=== PATIENT | female | born 1955 | race Caucasian/White ===

== ENCOUNTER 2022-08-06 21:21 | Inpatient (IN) | payer OTHER ==
[2022-08-06] MEDS ORDERED: ONDANSETRON 4 MG/2 ML VIAL ONE (22:25)
[2022-08-06] MEDS ORDERED: KETOROLAC TROMETHAMINE 30 MG/1 ML VIAL ONE (22:25)
[2022-08-06] MEDS ORDERED: morphine SULFATE 4 MG/ML VIAL ONE (22:25)
[2022-08-06] MEDS ORDERED: ONDANSETRON 4 MG/2 ML VIAL IVPUSH ONE (22:33)
[2022-08-06] MEDS ORDERED: morphine CARPU-JECT 2 MG/1 ML DISP.SYRIN IVPUSH ONE (22:33)
[2022-08-06] MEDS ORDERED: SODIUM CHLORIDE 1,000 ML IV ONE (22:33)
[2022-08-06] MEDS ORDERED: KETOROLAC TROMETHAMINE 30 MG/1 ML VIAL IVPUSH ONE (22:33)
[2022-08-06 23:04] LABS: HEMATOCRIT 48.2 % (32.4-45.2); HEMOGLOBIN 16.6 G/dL (10.7-15.3); MCHC 34.3 g/dl (32.0-36.0); MEAN CELL VOLUME 93.3 fl (80-96); MEAN PLT VOLUME 7.9 fl (7.5-11.1); PLATELET COUNT 304.2 10^3/uL (134-434); RBC 5.17 10^6/uL (3.60-5.2); RDW 13.6 % (11.6-15.6); WHITE BLOOD COUNT 17.1 10^3/uL (4.0-10.8)
[2022-08-06 23:18] LABS: ALBUMIN 4.5 g/dl (3.4-5.0); BILIRUBIN,TOTAL 0.6 mg/dl (0.2-1); CALCIUM 9.4 mg/dl (8.5-10); CREATININE 0.9 mg/dl (0.55-1.3); POTASSIUM 3.3 mmol/L (3.5-5.1)
[2022-08-07] MEDS ORDERED: morphine CARPU-JECT 4 MG/1 ML DISP.SYRIN IVPUSH ONE (00:13)
[2022-08-07] MEDS ORDERED: FAMOTIDINE 20 MG TABLET PO ONE (00:21)
[2022-08-07] MEDS ORDERED: morphine SULFATE 4 MG/ML VIAL ONE (00:30)
[2022-08-07 01:17] LABS: PH,URINE 6.5 (5.0-8.0); URINE APPEARANCE CLEAR; URINE BILIRUBIN NEGATIVE (NEGATIVE); URINE COLOR YELLOW; URINE GLUCOSE (UA) NEGATIVE (NEGATIVE); URINE KETONE NEGATIVE (NEGATIVE); URINE LEUK ESTERASE NEGATIVE (NEGATIVE); URINE NITRITE NEGATIVE (NEGATIVE); URINE PROTEIN NEGATIVE (NEGATIVE); URINE UROBILINOGEN 0.2 mg/dL (0.2-1.0)
[2022-08-07] MEDS ORDERED: PIPERACILLIN/TAZOBACTAM 4.5 GM VIAL IVPB ONE (01:20)
[2022-08-07] MEDS ORDERED: PIPERACILLIN/TAZOB 4.5 GM 4.5 GM in DEXTROSE 5%-WATER 100 ML IVPB ONE (01:25)
[2022-08-07 01:32] LABS: LACTIC ACID 3.4 mmol/L (0.4-2.0)
[2022-08-07] MEDS ORDERED: ONDANSETRON 4 MG/2 ML VIAL IVPUSH PRN (02:48)
[2022-08-07] MEDS ORDERED: SODIUM CHLORIDE 1,000 ML IV STA (02:56)
[2022-08-07] MEDS ORDERED: SODIUM CHLORIDE 1,000 ML IV SCH ×3 (03:00→07:25)
[2022-08-07 03:41] VITALS: BMI 44.0
[2022-08-07] MEDS ORDERED: ACETAMINOPHEN 1000 MG/100 ML BAG IVPB PRN (07:25)
[2022-08-07] MEDS ORDERED: KETOROLAC TROMETHAMINE 30 MG/1 ML VIAL IVPUSH PRN ×2 (07:25→07:34)
[2022-08-07] MEDS ORDERED: morphine CARPU-JECT 2 MG/1 ML DISP.SYRIN IVPUSH PRN (07:26)
[2022-08-07] MEDS: PIPERACILLIN/TAZOB 3.375 GM 3.375 GM in DEXTROSE 5%-WATER - 50 ML IVPB SCH ×4 (10:04→22:44)
[2022-08-07] MEDS: CHLORTHALIDONE 25 MG TABLET PO SCH (10:04)
[2022-08-07] MEDS: LISINOPRIL 20 MG TABLET PO SCH (10:04)
[2022-08-07] MEDS: ACETAMINOPHEN 1000 MG/100 ML BAG IVPB PRN (10:05)
[2022-08-07 10:25] LABS: LACTIC ACID 2.1 mmol/L (0.4-2.0)
[2022-08-07] MEDS: morphine SULFATE 4 MG/ML VIAL IVPUSH PRN ×2 (11:43→18:38)
[2022-08-07] MEDS: SODIUM CHLORIDE 1,000 ML IV SCH ×2 (11:45→18:31)
[2022-08-07 13:34] LABS: BILIRUBIN,TOTAL 0.4 mg/dl (0.2-1); CALCIUM 8.4 mg/dl (8.5-10); POTASSIUM 3.5 mmol/L (3.5-5.1); TOT PROT 7.1 g/dl (6.4-8.2)
[2022-08-07 15:45] LABS: INR 1.15 (0.83-1.09); PROTHROMBIN TIME (PATIENT) 13.3 SEC (9.7-13.0)
[2022-08-07 15:52] LABS: HEMOGLOBIN 14.7 GM/dL (10.7-15.3); MCH 30.3 pg (25.7-33.7); MCHC 33.3 g/dl (32.0-36.0); MEAN CELL VOLUME 90.9 fl (80-96); MEAN PLT VOLUME 7.5 fl (7.5-11.1); PLATELET COUNT 372 10^3/uL (134-434); RBC 4.85 M/mm3 (3.60-5.2); RDW 13.9 % (11.6-15.6); WHITE BLOOD COUNT 16.9 K/mm3 (4.0-10.0)
[2022-08-07 17:18] LABS: ANISOCYTOSIS 1+; MACROCYTOSIS 0
[2022-08-08] MEDS: LEVOTHYROXINE NA 100 MCG TABLET (FP) PO SCH ×2 (02:00→06:20)
[2022-08-08] MEDS: ACETAMINOPHEN 1000 MG/100 ML BAG IVPB PRN (02:42)
[2022-08-08] MEDS: SODIUM CHLORIDE 1,000 ML IV SCH (04:44)
[2022-08-08] MEDS: PIPERACILLIN/TAZOB 3.375 GM 3.375 GM in DEXTROSE 5%-WATER - 50 ML IVPB SCH ×4 (05:01→22:40)
[2022-08-08 08:16] LABS: BASO % 0.1 % (0-2.0); HEMOGLOBIN 13.1 GM/dL (10.7-15.3); LYMPH % 9.6 % (8-40); MCH 31.6 pg (25.7-33.7); MCHC 35.3 g/dl (32.0-36.0); MEAN CELL VOLUME 89.5 fl (80-96); MEAN PLT VOLUME 7.9 fl (7.5-11.1); MONO % 7.2 % (3.8-10.2); NEUT % 83.1 % (42.8-82.8); PLATELET COUNT 284 10^3/uL (134-434); RBC 4.14 M/mm3 (3.60-5.2); WHITE BLOOD COUNT 23.4 K/mm3 (4.0-10.0)
[2022-08-08 08:32] LABS: POTASSIUM 3.5 mmol/L (3.5-5.1)
[2022-08-08 08:34] LABS: INR 1.28 (0.83-1.09); PROTHROMBIN TIME (PATIENT) 14.8 SEC (9.7-13.0)
[2022-08-08 08:37] LABS: CALCIUM 8.2 mg/dL (8.5-10.1)
[2022-08-08 08:38] LABS: BLOOD UREA NITROGEN 32.2 mg/dL (7-18)
[2022-08-08 08:40] LABS: CREATININE 1.4 mg/dL (0.55-1.3)
[2022-08-08 08:42] LABS: TOT PROT 6.1 g/dl (6.4-8.2)
[2022-08-08 09:08] LABS: ANISOCYTOSIS 0; HELMET CELLS 0; HOWELL-JOLLY BODIES 0; MACROCYTOSIS 0; OVALOCYTE 0; ROULEAU 0; SICKELED CELLS 0; TARGET CELLS 0; TEAR DROP CELLS 0; TOXIC GRANULATION 0
[2022-08-08] MEDS: LISINOPRIL 20 MG TABLET PO SCH (09:29)
[2022-08-08] MEDS: CHLORTHALIDONE 25 MG TABLET PO SCH (09:29)
[2022-08-08 09:35] LABS: PHOSPHOROUS 3.7 mg/dL (2.5-4.9)
[2022-08-08] MEDS ORDERED: SODIUM CHLORIDE 1,000 ML IV SCH (09:56)
[2022-08-08] MEDS: morphine SULFATE 4 MG/ML VIAL IVPUSH PRN ×2 (11:13→22:43)
[2022-08-08] MEDS ORDERED: POTASSIUM CHLORIDE TABS 20 MEQ TABLET.ER (FP) PO ONE (14:57)
[2022-08-08] MEDS: LACTATED RINGERS SOLUTION 1,000 ML/1,000 ML INFUS.BAG IV SCH (17:01)
[2022-08-08 17:34] LABS: EPI CELLS 18 /uL (0-25.1); HYALINE CASTS 0 /uL (0-3.1); URINE APPEARANCE CLOUDY; URINE BACTERIA 3 /uL (0-1359); URINE BILIRUBIN NEGATIVE (NEGATIVE); URINE COLOR YELLOW; URINE GLUCOSE (UA) NEGATIVE (NEGATIVE); URINE KETONE NEGATIVE (NEGATIVE); URINE LEUK ESTERASE NEGATIVE (NEGATIVE); URINE NITRITE NEGATIVE (NEGATIVE); URINE PROTEIN 1+ (NEGATIVE); URINE UROBILINOGEN 0.2 mg/dL (0.2-1.0); URINE WBC 31 /uL (0-25.8)
[2022-08-08 18:17] LABS: URINE RBC 56 /uL (0-23.9)
[2022-08-09] MEDS: LACTATED RINGERS SOLUTION 1,000 ML/1,000 ML INFUS.BAG IV SCH ×4 (01:22→20:11)
[2022-08-09] MEDS: morphine SULFATE 4 MG/ML VIAL IVPUSH PRN ×3 (03:21→16:45)
[2022-08-09] MEDS: ACETAMINOPHEN 1000 MG/100 ML BAG IVPB PRN ×2 (05:53→20:10)
[2022-08-09] MEDS: PIPERACILLIN/TAZOB 3.375 GM 3.375 GM in DEXTROSE 5%-WATER - 50 ML IVPB SCH ×2 (05:53→10:00)
[2022-08-09] MEDS: LEVOTHYROXINE NA 100 MCG TABLET (FP) PO SCH (06:05)
[2022-08-09 07:41] LABS: HEMATOCRIT 34.1 % (32.4-45.2); HEMOGLOBIN 11.8 GM/dL (10.7-15.3); MCH 30.9 pg (25.7-33.7); MCHC 34.6 g/dl (32.0-36.0); MEAN CELL VOLUME 89.4 fl (80-96); MEAN PLT VOLUME 7.7 fl (7.5-11.1); PLATELET COUNT 267 10^3/uL (134-434); RBC 3.82 M/mm3 (3.60-5.2); RDW 13.9 % (11.6-15.6); WHITE BLOOD COUNT 20.9 K/mm3 (4.0-10.0)
[2022-08-09 07:55] LABS: POTASSIUM 3.1 mmol/L (3.5-5.1)
[2022-08-09 08:04] LABS: CALCIUM 8.6 mg/dL (8.5-10.1)
[2022-08-09 08:06] LABS: ALBUMIN 2.7 g/dl (3.4-5.0); BLOOD UREA NITROGEN 18.9 mg/dL (7-18); MAGNESIUM 2.1 mg/dL (1.8-2.4)
[2022-08-09 08:08] LABS: CREATININE 0.9 mg/dL (0.55-1.3)
[2022-08-09 08:11] LABS: BILIRUBIN,TOTAL 0.9 mg/dL (0.2-1)
[2022-08-09 09:55] LABS: ANISOCYTOSIS 1+; MACROCYTOSIS 0
[2022-08-09] MEDS: POTASSIUM CHLORIDE TABS 20 MEQ TABLET.ER (FP) PO SCH ×2 (10:00→21:59)
[2022-08-10] MEDS: morphine SULFATE 4 MG/ML VIAL IVPUSH PRN ×3 (00:36→14:02)
[2022-08-10] MEDS: ACETAMINOPHEN 1000 MG/100 ML BAG IVPB PRN ×3 (02:38→17:34)
[2022-08-10] MEDS: LEVOTHYROXINE NA 100 MCG TABLET (FP) PO SCH (06:31)
[2022-08-10 08:22] LABS: BASO % 0.3 % (0-2.0); EOS % 0.8 % (0-4.5); HEMATOCRIT 33.4 % (32.4-45.2); LYMPH % 14.4 % (8-40); MCHC 35.8 g/dl (32.0-36.0); MEAN CELL VOLUME 89.2 fl (80-96); MEAN PLT VOLUME 7.9 fl (7.5-11.1); MONO % 5.2 % (3.8-10.2); NEUT % 79.3 % (42.8-82.8); PLATELET COUNT 298 10^3/uL (134-434); RBC 3.74 M/mm3 (3.60-5.2); RDW 13.7 % (11.6-15.6); WHITE BLOOD COUNT 17.4 K/mm3 (4.0-10.0)
[2022-08-10] MEDS: LISINOPRIL 20 MG TABLET PO SCH (09:13)
[2022-08-10] MEDS: POTASSIUM CHLORIDE TABS 20 MEQ TABLET.ER (FP) PO SCH (09:13)
[2022-08-10] MEDS: PANTOPRAZOLE SODIUM 40 MG VIAL IVPUSH SCH ×2 (11:03→21:21)
[2022-08-10] MEDS: LACTATED RINGERS SOLUTION 1,000 ML/1,000 ML INFUS.BAG IV SCH ×3 (12:00→21:20)
[2022-08-10] MEDS ORDERED: IBUPROFEN 800 MG/8 ML IJ IVPB PRN (16:22)
[2022-08-11] MEDS: ACETAMINOPHEN 1000 MG/100 ML BAG IVPB PRN (05:23)
[2022-08-11] MEDS: LEVOTHYROXINE NA 100 MCG TABLET (FP) PO SCH (06:06)
[2022-08-11 09:00] LABS: BASO % 0.2 % (0-2.0); EOS % 1.6 % (0-4.5); HEMATOCRIT 32.8 % (32.4-45.2); HEMOGLOBIN 11.6 GM/dL (10.7-15.3); MCH 31.4 pg (25.7-33.7); MCHC 35.2 g/dl (32.0-36.0); MEAN CELL VOLUME 89.1 fl (80-96); MEAN PLT VOLUME 7.9 fl (7.5-11.1); MONO % 5.3 % (3.8-10.2); NEUT % 77.9 % (42.8-82.8); PLATELET COUNT 340 10^3/uL (134-434); RBC 3.69 M/mm3 (3.60-5.2); RDW 13.6 % (11.6-15.6); WHITE BLOOD COUNT 14.6 K/mm3 (4.0-10.0)
[2022-08-11 09:18] LABS: MAGNESIUM 1.8 mg/dL (1.8-2.4)
[2022-08-11] MEDS: morphine SULFATE 4 MG/ML VIAL IVPUSH PRN ×3 (09:24→20:58)
[2022-08-11] MEDS: PANTOPRAZOLE SODIUM 40 MG VIAL IVPUSH SCH ×2 (09:25→21:00)
[2022-08-11] MEDS: LISINOPRIL 20 MG TABLET PO SCH (09:25)
[2022-08-11 10:38] LABS: POTASSIUM 3.4 mmol/L (3.5-5.1)
[2022-08-11 10:40] LABS: ALBUMIN 2.7 g/dl (3.4-5.0); CALCIUM 9.1 mg/dL (8.5-10.1)
[2022-08-11 10:43] LABS: CREATININE 0.6 mg/dL (0.55-1.3)
[2022-08-11 10:45] LABS: BILIRUBIN,TOTAL 0.9 mg/dL (0.2-1); TOT PROT 6.4 g/dl (6.4-8.2)
[2022-08-11] MEDS: LACTATED RINGERS SOLUTION 1,000 ML/1,000 ML INFUS.BAG IV SCH (15:07)
[2022-08-11] MEDS: DOCUSATE SODIUM 100 MG CAPSULE (FP) PO SCH (21:00)
[2022-08-12] MEDS: morphine SULFATE 4 MG/ML VIAL IVPUSH PRN ×2 (03:31→15:40)
[2022-08-12] MEDS: LEVOTHYROXINE NA 100 MCG TABLET (FP) PO SCH (06:05)
[2022-08-12 08:38] LABS: BASO % 0.3 % (0-2.0); EOS % 1.9 % (0-4.5); HEMATOCRIT 32.1 % (32.4-45.2); HEMOGLOBIN 11.2 GM/dL (10.7-15.3); LYMPH % 17.7 % (8-40); MCH 31.1 pg (25.7-33.7); MCHC 34.9 g/dl (32.0-36.0); MEAN CELL VOLUME 89.1 fl (80-96); MEAN PLT VOLUME 7.6 fl (7.5-11.1); MONO % 6.2 % (3.8-10.2); NEUT % 73.9 % (42.8-82.8); PLATELET COUNT 344 10^3/uL (134-434); RDW 13.3 % (11.6-15.6); WHITE BLOOD COUNT 14.7 K/mm3 (4.0-10.0)
[2022-08-12] MEDS: LACTATED RINGERS SOLUTION 1,000 ML/1,000 ML INFUS.BAG IV SCH ×2 (08:54→15:28)
[2022-08-12] MEDS: PANTOPRAZOLE SODIUM 40 MG VIAL IVPUSH SCH ×2 (09:01→22:58)
[2022-08-12] MEDS: LISINOPRIL 20 MG TABLET PO SCH (09:01)
[2022-08-12 09:06] LABS: ALBUMIN 2.5 g/dl (3.4-5.0); BLOOD UREA NITROGEN 7.2 mg/dL (7-18); CALCIUM 8.4 mg/dL (8.5-10.1)
[2022-08-12 09:08] LABS: MAGNESIUM 1.8 mg/dL (1.8-2.4)
[2022-08-12 09:09] LABS: CREATININE 0.6 mg/dL (0.55-1.3)
[2022-08-12 09:11] LABS: BILIRUBIN,TOTAL 0.7 mg/dL (0.2-1)
[2022-08-12] MEDS: POTASSIUM CHLORIDE TABS 20 MEQ TABLET.ER (FP) PO SCH ×2 (10:41→22:57)
[2022-08-12] MEDS: oxyCODONE HCL 5 MG TABLET PO PRN (21:10)
[2022-08-12] MEDS: DOCUSATE SODIUM 100 MG CAPSULE (FP) PO SCH (22:57)
[2022-08-13] MEDS: LEVOTHYROXINE NA 100 MCG TABLET (FP) PO SCH (07:02)
[2022-08-13] MEDS: oxyCODONE HCL 5 MG TABLET PO PRN (07:02)
[2022-08-13 08:03] LABS: POTASSIUM 3.5 mmol/L (3.5-5.1)
[2022-08-13 08:06] LABS: CALCIUM 8.6 mg/dL (8.5-10.1)
[2022-08-13 08:07] LABS: ALBUMIN 2.5 g/dl (3.4-5.0); BLOOD UREA NITROGEN 6.8 mg/dL (7-18)
[2022-08-13 08:08] LABS: BASO % 0.2 % (0-2.0); EOS % 3.5 % (0-4.5); HEMATOCRIT 31.7 % (32.4-45.2); MCHC 34.8 g/dl (32.0-36.0); MEAN CELL VOLUME 89.1 fl (80-96); MEAN PLT VOLUME 7.4 fl (7.5-11.1); NEUT % 73.3 % (42.8-82.8); PLATELET COUNT 393 10^3/uL (134-434); RBC 3.55 M/mm3 (3.60-5.2); RDW 13.5 % (11.6-15.6); WHITE BLOOD COUNT 11.6 K/mm3 (4.0-10.0)
[2022-08-13 08:10] LABS: CREATININE 0.6 mg/dL (0.55-1.3); MAGNESIUM 1.7 mg/dL (1.8-2.4)
[2022-08-13 08:12] LABS: BILIRUBIN,TOTAL 0.7 mg/dL (0.2-1)
[2022-08-13] MEDS: PANTOPRAZOLE SODIUM 40 MG VIAL IVPUSH SCH (09:08)
[2022-08-13] MEDS: LISINOPRIL 20 MG TABLET PO SCH (09:08)
[2022-08-13] MEDS: POTASSIUM CHLORIDE TABS 20 MEQ TABLET.ER (FP) PO SCH (09:08)
[2022-08-13] MEDS ORDERED: MAGNESIUM OXIDE 400 MG TABLET (FP) PO ONE (09:45)
[2022-08-13 16:09] VITALS: BP 150/75; PULSE 70; RESP 18; TEMP 98
[2022-08-13] MEDS ORDERED: PANTOPRAZOLE 40 MG TABLET PO SCH (22:00)
== END 2022-08-13 17:10 | disposition home or self-care (01) | DRG 282 ==
LOC: FER 21:21 → FM/S 08-07 02:41 → J8W 08-07 13:23
PROVIDERS: ADMIT Internal Medicine; ATTEND Nurse Practitioner Acute Care
DX: K85.10 Biliary acute pancreatitis without necrosis or infection (principal); E87.20 Acidosis, unspecified; N17.9 Acute kidney failure, unspecified; Z68.41 Body mass index [BMI] 40.0-44.9, adult; E66.01 Morbid (severe) obesity due to excess calories; D72.829 Elevated white blood cell count, unspecified; E03.9 Hypothyroidism, unspecified; E87.6 Hypokalemia; I10 Essential (primary) hypertension; R11.2 Nausea with vomiting, unspecified; R10.11 Right upper quadrant pain
CPT/HCPCS: 0241U-QW; 36415; 74181-TC; 76705-TC; 76775-TC; 78226-TC; 80053; 81003; 82436; 82550; 82570; 83605; 83615; 83690; 83735; 84100; 84133; 84300; 84443; 84484; 85025; 85027; 85610; 86140; 86850; 86900; 86901; 87040; 87086; 87186; 93005; 97116-GP; 97161-GP; 99285-25; A9537

== ENCOUNTER 2022-11-05 04:05 | Day surgery (SDC) | payer OTHER ==
[2022-10-31 14:36] VITALS: BMI 43.9
[2022-11-05] MEDS ORDERED: BUPIVACAINE HCL/PF 0.25% (2.5MG/ML) 10 ML VIAL ONE (11:16)
[2022-11-05] MEDS ORDERED: SUCCINYLCHOLINE CHLORIDE 200 MG/10 ML SYRINGE ONE ×2 (12:55→13:29)
[2022-11-05] MEDS ORDERED: MIDAZOLAM HCL 2 MG/2 ML SINGLE DOSE VIAL ONE (12:55)
[2022-11-05] MEDS ORDERED: PROPOFOL 40 ML ONE (12:55)
[2022-11-05] MEDS ORDERED: ROCURONIUM BROMIDE 50 MG/5 ML SYRINGE ONE ×2 (12:55→13:29)
[2022-11-05] MEDS ORDERED: cefOXitin SODIUM 2 GM VIAL (RESTRICTED TO ID) IVPB ONE (13:08)
[2022-11-05] MEDS ORDERED: HYDROmorphone HCl 2 MG/ML VIAL ONE (13:12)
[2022-11-05] MEDS ORDERED: BUPIVACAINE HCL/PF 0.25% (2.5MG/ML) 10 ML VIAL IJ ONE (13:20)
[2022-11-05] MEDS ORDERED: SUGAMMADEX SODIUM 200 MG/2 ML VIAL ONE (13:24)
[2022-11-05] MEDS ORDERED: ACETAMINOPHEN INJECTION 100 ML IVPB ONE ×2 (13:37→16:35)
[2022-11-05] MEDS ORDERED: LABETALOL HCL 5 MG/1 ML (100MG/20 ML VIAL) IVPUSH ONE (14:02)
[2022-11-05] MEDS ORDERED: LISINOPRIL 20 MG TABLET PO ONE (15:00)
[2022-11-05] MEDS ORDERED: ONDANSETRON 4 MG/2 ML VIAL ONE (15:19)
[2022-11-05] MEDS ORDERED: ONDANSETRON 4 MG/2 ML VIAL IVPUSH ONE (15:23)
[2022-11-05 15:42] VITALS: TEMP 97.7
[2022-11-05 15:58] VITALS: RESP 20
[2022-11-05] MEDS ORDERED: PROMETHAZINE HCL 25 MG/1 ML VIAL ONE (16:38)
[2022-11-05] MEDS ORDERED: PROMETHAZINE HCL 25 MG/1 ML VIAL IVPB PRN (16:51)
[2022-11-05 17:57] VITALS: BP 153/75; PULSE 54
== END 2022-11-05 18:58 | disposition home or self-care (01) ==
LOC: JASU-SURG 04:05
PROVIDERS: ATTEND Surgery
PROC: 0FT44ZZ Resection of Gallbladder, Percutaneous Endoscopic Approach (ICD-10-PCS; principal; 2022-11-05 12:45)
DX: K81.1 Chronic cholecystitis (principal)
CPT/HCPCS: 82962; 88304-TC; 94760

== ENCOUNTER 2022-11-08 05:12 | Inpatient (IN) | payer OTHER ==
[2022-11-08] MEDS ORDERED: ONDANSETRON 4 MG/2 ML VIAL IVPUSH ONE (05:53)
[2022-11-08] MEDS ORDERED: ACETAMINOPHEN 1000 MG/100 ML BAG IVPB ONE (05:53)
[2022-11-08] MEDS ORDERED: FAMOTIDINE 20 MG/50 ML IVPB 20 MG/50 ML MG IVPB ONE ×2 (05:54→06:41)
[2022-11-08] MEDS ORDERED: ACETAMINOPHEN INJECTION 100 ML IVPB ONE (06:28)
[2022-11-08] MEDS ORDERED: ONDANSETRON 4 MG/2 ML VIAL ONE (06:28)
[2022-11-08 06:43] LABS: BASO % 0.2 % (0-2.0); EOS % 0.3 % (0-4.5); HEMATOCRIT 40.8 % (32.4-45.2); HEMOGLOBIN 13.4 GM/dL (10.7-15.3); LYMPH % 9.2 % (8-40); MCH 30.1 pg (25.7-33.7); MCHC 32.9 g/dl (32.0-36.0); MEAN CELL VOLUME 91.6 fl (80-96); MONO % 7.4 % (3.8-10.2); NEUT % 82.9 % (42.8-82.8); PLATELET COUNT 339 10^3/uL (134-434); RBC 4.45 M/mm3 (3.60-5.2); WHITE BLOOD COUNT 9.2 K/mm3 (4.0-10.0)
[2022-11-08 06:49] LABS: EPI CELLS 34 /uL (0-25.1); HYALINE CASTS 3 /uL (0-3.1); URINE APPEARANCE CLEAR; URINE BACTERIA 42 /uL (0-1359); URINE BILIRUBIN 2+ (NEGATIVE); URINE COLOR DK YELLOW; URINE GLUCOSE (UA) NEGATIVE (NEGATIVE); URINE KETONE TRACE (NEGATIVE); URINE LEUK ESTERASE TRACE (NEGATIVE); URINE NITRITE NEGATIVE (NEGATIVE); URINE PROTEIN 3+ (NEGATIVE); URINE RBC 38 /uL (0-23.9); URINE WBC 50 /uL (0-25.8)
[2022-11-08 06:51] LABS: VENOUS BASE EXCESS 4.4 mmol/L (-2-2); VENOUS O2 SATURATION 27.4 % (70-80); VENOUS PCO2 61.8 mmHg (38-52); VENOUS PH 7.334 (7.310-7.410)
[2022-11-08 06:52] LABS: INR 1.08 (0.83-1.09); PROTHROMBIN TIME (PATIENT) 12.5 SEC (9.7-13.0)
[2022-11-08 06:55] LABS: ACTIVATED PTT 31.3 SECONDS (25.2-36.5)
[2022-11-08 06:56] LABS: POTASSIUM 4.3 mmol/L (3.5-5.1)
[2022-11-08 06:59] LABS: ALBUMIN 3.7 g/dl (3.4-5.0)
[2022-11-08 07:02] LABS: CREATININE 0.9 mg/dL (0.55-1.3)
[2022-11-08 07:04] LABS: BILIRUBIN,TOTAL 2.9 mg/dL (0.2-1); TOT PROT 6.8 g/dl (6.4-8.2)
[2022-11-08] MEDS ORDERED: PIPERACILLIN/TAZOB 4.5 GM 4.5 GM in DEXTROSE 5%-WATER 100 ML IVPB ONE (09:29)
[2022-11-08] MEDS ORDERED: PIPERACILLIN/TAZOB 4.5 GM 4.5 GM/100 ML BAG IVPB ONE (09:34)
[2022-11-08] MEDS ORDERED: LACTATED RINGERS SOLUTION 1,000 ML IV SCH (11:00)
[2022-11-08] MEDS: LACTATED RINGERS SOLUTION 1000 ML INFUS.BAG IV SCH ×2 (11:37→13:02)
[2022-11-08 11:39] VITALS: RESP 18
[2022-11-08 12:54] VITALS: BMI 43.9
[2022-11-08] MEDS: morphine SULFATE 4 MG/ML VIAL IVPUSH PRN ×2 (13:41→20:06)
[2022-11-08] MEDS: LACTATED RINGERS SOLUTION 1,000 ML IV SCH (14:04)
[2022-11-08] MEDS ORDERED: POLYETHYLENE GLYCOL (HEALTHYLAX) 3350 17 GM PACKET PO PRN (14:32)
[2022-11-08] MEDS: PIPERACILLIN/TAZOB 4.5 GM 4.5 GM in DEXTROSE 5%-WATER 100 ML IVPB SCH (17:04)
[2022-11-08] MEDS ORDERED: PIPERACILLIN/TAZOB 3.375 GM 3.375 GM in DEXTROSE 5%-WATER - 50 ML IVPB SCH (18:00)
[2022-11-08] MEDS ORDERED: ONDANSETRON 4 MG/2 ML VIAL IVPUSH PRN (19:02)
[2022-11-08] MEDS ORDERED: ACETAMINOPHEN 1000 MG/100 ML BAG IVPB PRN (19:02)
[2022-11-09] MEDS ORDERED: PIPERACILLIN/TAZOBACTAM 4.5 GM VIAL IVPB ONE (01:04)
[2022-11-09] MEDS: PIPERACILLIN/TAZOB 4.5 GM 4.5 GM in DEXTROSE 5%-WATER 100 ML IVPB SCH ×3 (01:13→17:29)
[2022-11-09 10:08] LABS: BASO % 0.3 % (0-2.0); EOS % 0.9 % (0-4.5); HEMATOCRIT 38.7 % (32.4-45.2); HEMOGLOBIN 12.8 GM/dL (10.7-15.3); LYMPH % 25.4 % (8-40); MCH 30.2 pg (25.7-33.7); MEAN CELL VOLUME 91.5 fl (80-96); MONO % 6.3 % (3.8-10.2); NEUT % 67.1 % (42.8-82.8); PLATELET COUNT 318 10^3/uL (134-434); RBC 4.23 M/mm3 (3.60-5.2); RDW 13.9 % (11.6-15.6); WHITE BLOOD COUNT 10.9 K/mm3 (4.0-10.0)
[2022-11-09 10:15] LABS: INR 1.1 (0.83-1.09); PROTHROMBIN TIME (PATIENT) 12.8 SEC (9.7-13.0)
[2022-11-09 10:18] LABS: ACTIVATED PTT 32.3 SECONDS (25.2-36.5)
[2022-11-09 10:35] LABS: POTASSIUM 3.7 mmol/L (3.5-5.1)
[2022-11-09 10:39] LABS: CALCIUM 8.8 mg/dL (8.5-10.1)
[2022-11-09 10:40] LABS: ALBUMIN 3.5 g/dl (3.4-5.0); BLOOD UREA NITROGEN 8.6 mg/dL (7-18)
[2022-11-09 10:43] LABS: CREATININE 0.7 mg/dL (0.55-1.3); PHOSPHOROUS 4.3 mg/dL (2.5-4.9)
[2022-11-09 10:44] LABS: BILIRUBIN,TOTAL 1.2 mg/dL (0.2-1)
[2022-11-09 10:46] LABS: TOT PROT 6.6 g/dl (6.4-8.2)
[2022-11-09] MEDS: LACTATED RINGERS SOLUTION 1,000 ML IV SCH (14:57)
[2022-11-10] MEDS: PIPERACILLIN/TAZOB 4.5 GM 4.5 GM in DEXTROSE 5%-WATER 100 ML IVPB SCH ×2 (01:26→09:09)
[2022-11-10] MEDS ORDERED: LEVOTHYROXINE NA 100 MCG TABLET (FP) PO SCH ×2 (08:15→10:00)
[2022-11-10] MEDS ORDERED: LISINOPRIL 20 MG TABLET PO SCH (10:00)
[2022-11-10] MEDS ORDERED: ENOXAPARIN NA (PORCINE) 40 MG/0.4 ML DISP.SYRIN SQ SCH (10:00)
[2022-11-10 10:14] LABS: BASO % 0.5 % (0-2.0); EOS % 3.9 % (0-4.5); HEMATOCRIT 37.1 % (32.4-45.2); HEMOGLOBIN 12.9 GM/dL (10.7-15.3); LYMPH % 29.4 % (8-40); MCH 31.2 pg (25.7-33.7); MCHC 34.8 g/dl (32.0-36.0); MEAN CELL VOLUME 89.5 fl (80-96); MEAN PLT VOLUME 7.7 fl (7.5-11.1); MONO % 3.8 % (3.8-10.2); NEUT % 62.4 % (42.8-82.8); PLATELET COUNT 315 10^3/uL (134-434); RBC 4.14 M/mm3 (3.60-5.2); RDW 13.7 % (11.6-15.6); WHITE BLOOD COUNT 8.2 K/mm3 (4.0-10.0)
[2022-11-10 10:19] LABS: ALBUMIN 3.3 g/dl (3.4-5.0); BLOOD UREA NITROGEN 9.3 mg/dL (7-18); CALCIUM 8.9 mg/dL (8.5-10.1)
[2022-11-10 10:23] LABS: CREATININE 0.9 mg/dL (0.55-1.3)
[2022-11-10 10:24] LABS: BILIRUBIN,TOTAL 0.7 mg/dL (0.2-1)
[2022-11-10 10:25] LABS: TOT PROT 6.6 g/dl (6.4-8.2)
[2022-11-10 14:53] VITALS: BP 123/66; PULSE 57; TEMP 98.2
[2022-11-10] MEDS: LACTATED RINGERS SOLUTION 1,000 ML IV SCH (16:30)
== END 2022-11-10 16:00 | disposition home or self-care (01) | DRG 282 ==
LOC: JER 05:12 → JERBED 11:08 → J6S 12:01
PROVIDERS: ADMIT Internal Medicine; ATTEND Internal Medicine
DX: K85.10 Biliary acute pancreatitis without necrosis or infection (principal); I10 Essential (primary) hypertension; E03.9 Hypothyroidism, unspecified; K76.0 Fatty (change of) liver, not elsewhere classified; K86.3 Pseudocyst of pancreas; R74.01 Elevation of levels of liver transaminase levels; R16.0 Hepatomegaly, not elsewhere classified; Z68.41 Body mass index [BMI] 40.0-44.9, adult; E66.01 Morbid (severe) obesity due to excess calories; K80.50 Calculus of bile duct without cholangitis or cholecystitis without obstruction; E80.6 Other disorders of bilirubin metabolism
CPT/HCPCS: 0241U-QW; 36415; 71045-TC-FY; 74177-TC; 74181-TC; 76705-TC; 80053; 80061; 81003; 82550; 82803; 83605; 83690; 83735; 84100; 84484; 85025; 85610; 85730; 86140; 86850; 86900; 86901; 87040; 87086; 87186; 93005; 93010; 99285-25; Q9967